=== PATIENT | female | born 1950 | race Caucasian/White ===

== ENCOUNTER 2022-03-21 06:19 | Day surgery (SDC) | payer OTHER ==
[~2022-03-21] VITALS: Ht 165.1 cm; Wt 48.1 kg
[2022-03-21 11:54] VITALS: BP_SYST 126
[2022-03-21] MEDS ORDERED: BENZOCAINE 20% GEL 32 GM BOTTLE MM ONE (12:00)
[2022-03-21] MEDS ORDERED: NS 100 ML BAG ONE (12:00)
[2022-03-21] MEDS ORDERED: ARTICAINE HCL/EPINEPHRINE 4%/1:200,000 BIT 1.7 ML CARTRIDGE IJ ONE (12:00)
[2022-03-21] MEDS ORDERED: NS IRRIG SOLN 1000 ML IR ONE (12:00)
== END 2022-03-21 11:55 | disposition home or self-care (01) ==
LOC: SDS 06:19 → SMU 06:22 → SDS 11:55
PROVIDERS: ATTEND Dentist General Practice
DX: M27.2 Inflammatory conditions of jaws (principal); M89.8X0 Other specified disorders of bone, multiple sites; M26.603 Bilateral temporomandibular joint disorder, unspecified; K05.223 Aggressive periodontitis, generalized, severe; M81.0 Age-related osteoporosis without current pathological fracture; I10 Essential (primary) hypertension; E03.9 Hypothyroidism, unspecified; K05.6 Periodontal disease, unspecified; Z79.899 Other long term (current) drug therapy; Z88.2 Allergy status to sulfonamides; Z88.5 Allergy status to narcotic agent; Z20.822 Contact with and (suspected) exposure to COVID-19
CPT/HCPCS: 21025; 21215; 21248; 36415; 70140; 87426; C1713; C1776